=== PATIENT | female | born 1935 | race Caucasian/White ===

== ENCOUNTER 2017-03-04 13:16 | Emergency (ER) | payer MEDICARE, OTHER ==
[~2017-03-04] VITALS: Ht 152.4 cm; Wt 72.6 kg
[2017-03-04] MEDS: HYDROMORPHONE 1 MG/1 ML DISP.SYRIN IM ONE (13:39)
[2017-03-04] MEDS: PROMETHAZINE HCL 25 MG/1 ML VIAL IM ONE (13:40)
[2017-03-04] MEDS ORDERED: HYDROMORPHONE 1 MG/1 ML DISP.SYRIN ONE ×2 (13:45→16:05)
[2017-03-04] MEDS ORDERED: PROMETHAZINE HCL 25 MG/1 ML VIAL ONE (13:46)
--- NOTE | 2017-03-04 14:27 | NUR ---
CALLED [facility] AT [phone]. FAXED THE RESULT OF CT AND FACE SHEET AT [phone]
[2017-03-04] MEDS ORDERED: BRIM5DRO2 (14:46)
[2017-03-04] MEDS: ONDANSETRON IV *ER 4 MG/2 ML VIAL IV ONE (15:57)
[2017-03-04] MEDS: HYDROMORPHONE 1 MG/1 ML DISP.SYRIN IV ONE (15:57)
--- NOTE | 2017-03-04 15:57 | NUR ---
[facility] CREW AT BEDSIDE TO TRANSFER THE PT.
[2017-03-04] MEDS ORDERED: ONDANSETRON 4 MG/2 ML VIAL ONE (16:05)
--- NOTE | 2017-03-04 16:06 | NUR ---
CALLED AT [phone], AND GAVE REPORT.
--- NOTE | 2017-03-04 16:07 | NUR ---
PT TRANSFERED IN STABLE CONDITION. PT SON AT BEDSIDE THE WHOLE ER STAY.
== END 2017-03-04 16:08 | disposition short-term general hospital (02) ==
LOC: ER 13:16
DX: I63.9 Cerebral infarction, unspecified (principal); R51 Headache; H40.9 Unspecified glaucoma
CPT/HCPCS: 70450; A4663; J1170; J2405; J2550